=== PATIENT | female | born 1950 | race Caucasian/White ===

== ENCOUNTER 2024-07-02 08:14 | Observation (INO) ==
[2024-07-02] MEDS ORDERED: Dexamethasone IV 4 MG/ML VIAL 1 ml VIAL ONE (08:41)
[2024-07-02] MEDS ORDERED: ceFAZolin 2 GM PREMIX 2 GM/50 ML BAG ONE (08:42)
[2024-07-02] MEDS ORDERED: Tranexamic Acid 1 GM/100ML BAG 2,000 MG/200 ML BAG IV ONE (08:42)
[2024-07-02] MEDS ORDERED: Famotidine IV 10 MG/ML 2 ml VIAL (20 mg) ONE (08:42)
[2024-07-02] MEDS: Dexamethasone IV 4 MG/ML VIAL 1 ml VIAL IV SLOW PU ONE (09:04)
[2024-07-02] MEDS: Famotidine IV 10 MG/ML 2 ml VIAL (20 mg) IV ONE (09:04)
[2024-07-02] MEDS: Buffered Lidocaine 1% SYRIN 1 ml INTRADERM ONE (09:04)
[2024-07-02] MEDS: Lactated Ringers 1000 ml BAG 1,000 ML IV SCH ×2 (09:05→16:02)
[2024-07-02] MEDS ORDERED: ROPIVACAINE 5 MG/ML 30 ML BTL (0.5%) ONE ×2 (09:40→09:58)
[2024-07-02 09:41] LABS: Rapid COVID-19 Molecular Undetected (Undetected)
[2024-07-02] MEDS ORDERED: Midazolam 2 mg/2 ml VIAL 1 mg/ml 2 ml VIAL (2 mg) ONE ×2 (09:41→10:54)
[2024-07-02] MEDS ORDERED: fentaNYL 100 mcg/2 ml 50 MCG/ML VIAL ONE ×2 (09:41→14:16)
[2024-07-02] MEDS ORDERED: Glycopyrrolate IV 0.2 MG/ML 1 ML VIAL ONE (11:05)
[2024-07-02] MEDS ORDERED: Phenylephrine 40 mcg/mL 10mL (400mcg) SYRINGE ONE (11:35)
[2024-07-02] MEDS ORDERED: Morphine 4 MG/ML VIAL (1 ml) IV PRN (12:25)
[2024-07-02] MEDS ORDERED: Naloxone 0.4 mg VIAL 0.4 mg/ml 1 ml VIAL IV PRN (12:25)
[2024-07-02] MEDS ORDERED: Lactulose 30 ml UDC PO PRN (13:07)
[2024-07-02] MEDS ORDERED: Ondansetron 4 mg VIAL 2 MG/ML 2 ml VIAL IV PRN (13:07)
[2024-07-02] MEDS ORDERED: Ondansetron ODT 4 mg TAB 4 MG TAB PO PRN (13:07)
[2024-07-02] MEDS ORDERED: Magnesium Hydroxide LIQ 30 ML UDC PO PRN (13:07)
[2024-07-02] MEDS ORDERED: Calcium Carb (TUMS) 500 mg CHEW TAB PO PRN (13:07)
[2024-07-02] MEDS: fentaNYL 100 mcg/2 ml 50 MCG/ML VIAL IV PRN (14:18)
[2024-07-02] MEDS: ceFAZolin 2 GM PREMIX 2 GM/50 ML BAG IV SCH (17:54)
[2024-07-02] MEDS: Magnesium Hydroxide LIQ 30 ML UDC PO SCH (21:26)
[2024-07-03] MEDS: Benzocaine/Menthol LOZ PO PRN (00:27)
[2024-07-03 06:29] LABS: Hematocrit 32.7 % (35-45); Hemoglobin 10.8 g/dL (11.5-14.3); Mean Platelet Volume 8.9 fL (7.5-11.2); Platelet Count 208 10^3/uL (150-450)
[2024-07-03 06:49] LABS: Calcium 8.6 mg/dL (8.6-10.3); Creatinine, Serum 0.92 mg/dL (0.51-0.95); Potassium 4.2 mmol/L (3.5-5.0); eGFR CKD-EPI 64.9 (>60)
[2024-07-03] MEDS: Influenza Vaccine *TRI* 2024-25* 0.5 ML SYRINGE IM ONE (08:43)
[2024-07-03] MEDS: Vitamin THERAPEUTIC TAB PO SCH (08:43)
[2024-07-03] MEDS: Morphine 2 MG/ML SYRINGE IV PRN (09:29)
[2024-07-03] MEDS ORDERED: Morphine ER 15 mg TAB ** extended release PO SCH (16:00)
[2024-07-04 06:29] LABS: Hematocrit 36.1 % (35-45); Hemoglobin 11.5 g/dL (11.5-14.3); Mean Platelet Volume 9.2 fL (7.5-11.2); Platelet Count 251 10^3/uL (150-450)
[2024-07-04 10:14] VITALS: BP 121/66
== END 2024-07-04 11:52 | disposition home or self-care (01) ==
LOC: OR 08:14 → SSU 08:14
PROVIDERS: ADMIT Orthopaedic Surgery Adult Reconstructive Orthopaedic Surgery; ATTEND Orthopaedic Surgery Adult Reconstructive Orthopaedic Surgery